=== PATIENT | female | born 1975 | race Hispanic/Latino ===

== ENCOUNTER 2017-11-28 21:19 | Emergency (ER) | payer BC ==
[2017-11-28 21:57] LABS: BASOPHILS % (AUTO) 0.7 % (0.0-5.0); EOSINOPHILS % (AUTO) 1.6 % (0.0-8.0); HEMATOCRIT 36.5 % (36-48); MEAN CORPUSCULAR HEMOGLOBIN 30.6 pg (27.0-33.0); MEAN CORPUSCULAR HGB CONC 35.1 g/dL (32.0-36.0); MEAN CORPUSCULAR VOLUME 87.3 fL (79-99); MONOCYTES % (AUTO) 7.9 % (3.0-13.0); NEUTROPHILS % (AUTO) 42.8 % (40.0-77.0); NUCLEATED RED BLOOD CELLS 0.1 % (0.0-0.19); PLATELET COUNT (AUTO) 313 K/uL (130-400); RED BLOOD CELL COUNT(AUTO) 4.18 MIL/uL (4.00-5.50); RED CELL DISTRIBUTION WIDTH 12.3 % (11.0-15.5); WHITE BLOOD COUNT (AUTO) 7.6 K/uL (4.8-10.8)
[2017-11-28 22:00] LABS: CREATININE 2.2 mg/dL (0.5-1.5)
[2017-11-28 22:02] LABS: INR 0.94 (0.85-1.15); PARTIAL THROMBOPLASTIN TIME 26.8 SEC (26.3-35.5); PROTHROMBIN TIME 9.9 SEC (9.6-11.6)
[2017-11-28 22:08] LABS: BILIRUBIN,URINE Negative (NEGATIVE); COLOR,URINE Yellow (YELLOW); GLUCOSE, URINE (UA) Negative (NEGATIVE); KETONES,URINE Negative (NEGATIVE); LEUKOCYTE ESTERASE ,URINE Negative (NEGATIVE); NITRATE,URINE Negative (NEGATIVE); OCCULT BLOOD,URINE Trace (NEGATIVE); PROTEIN,URINE >=1000 (NEGATIVE); UROBILINOGEN,URINE 0.2 mg/dL (0.2-1.0)
[2017-11-28 22:09] LABS: APPEARANCE,URINE CLEAR (CLEAR)
[2017-11-28 22:10] LABS: HCG,QUAL RESULT NEGATIVE (NEGATIVE)
[2017-11-28 22:14] LABS: BILIRUBIN,TOTAL 0.4 mg/dL (0.2-1.0); CREATINE KINASE MB 0.6 ng/mL (0.5-3.6); TOTAL PROTEIN, SERUM 7.1 g/dL (6.0-8.3)
[2017-11-28 22:21] LABS: BACTERIA,URINE Rare /HPF (None Seen); SQUAMOUS EPITHELIAL CELL,UR Few /HPF (0-2); WBC,URINE 0-1 /HPF (0-1)
[2017-11-28] MEDS ORDERED: ASPIRIN 325 MG TABLET ONE (22:22)
[2017-11-28] MEDS ORDERED: NITROGLYCERIN 1GM/1 INCH PACKET TD ONE (22:23)
[2017-11-28 23:00] LABS: ERYTHROCYTE SEDIMENTATION RATE 48 MM/HR (0-15)
[2017-11-29] MEDS ORDERED: TRAMADOL HCL 50 MG TABLET ONE (01:01)
== END 2017-11-29 01:24 | disposition home or self-care (01) ==
LOC: EDH 21:19
DX: L93.0 Discoid lupus erythematosus (principal); R07.9 Chest pain, unspecified; I10 Essential (primary) hypertension
CPT/HCPCS: 36415; 71045; 80053; 81001; 81025; 82550; 82553; 84484; 85025; 85610; 85651; 85730; 86141; 93005

== ENCOUNTER → 2017-12-29 | Outpatient (CLI) | payer BC | END | disposition home or self-care (01) | LOC: SHCH 07:47 | PROVIDERS: ATTEND Internal Medicine Cardiovascular Disease | DX: I11.9 Hypertensive heart disease without heart failure (principal); I20.9 Angina pectoris, unspecified | CPT/HCPCS: 93306 ==

== ENCOUNTER → 2018-09-09 | Outpatient (CLI) | payer OTHER | END | disposition home or self-care (01) | LOC: OIH 12:59 | PROVIDERS: ATTEND Internal Medicine Cardiovascular Disease | DX: Z13.6 Encounter for screening for cardiovascular disorders (principal) | CPT/HCPCS: 75571 ==

== ENCOUNTER 2019-09-13 21:03 | Emergency (ER) | payer BC, OTHER ==
[2019-09-13] MEDS ORDERED: ASPIRIN 81MG TAB.CHEW ONE (21:26)
[2019-09-13 21:28] LABS: BASOPHILS % (AUTO) 0.4 % (0.0-5.0); EOSINOPHILS % (AUTO) 0.8 % (0.0-8.0); HEMATOCRIT 37.2 % (36-48); LYMPHOCYTES % (AUTO) 29.5 % (21.0-51.0); MEAN CORPUSCULAR HGB CONC 34.4 g/dL (32.0-36.0); MEAN CORPUSCULAR VOLUME 87.3 fL (79-99); MONOCYTES % (AUTO) 5.4 % (3.0-13.0); NEUTROPHILS % (AUTO) 63.4 % (40.0-77.0); PLATELET COUNT (AUTO) 286 K/uL (130-400); RED BLOOD CELL COUNT(AUTO) 4.26 MIL/uL (4.00-5.50); RED CELL DISTRIBUTION WIDTH 12.3 % (11.0-15.5)
[2019-09-13 21:40] LABS: CREATININE 2.7 mg/dL (0.5-1.5); POTASSIUM 3.8 mmol/L (3.5-5.1)
[2019-09-13 21:44] LABS: ALBUMIN 2.9 g/dL (3.5-5.0); BILIRUBIN,TOTAL 0.3 mg/dL (0.2-1.0)
[2019-09-13 21:47] LABS: INR 0.87 (0.85-1.15); PROTHROMBIN TIME 9.2 SEC (9.6-11.6)
[2019-09-13] MEDS ORDERED: ONDANSETRON HCL 4 MG/2 ML VIAL ONE (22:03)
[2019-09-13] MEDS ORDERED: MORPHINE SULFATE 4 MG/1ML SYG ONE (22:04)
[2019-09-13 22:59] LABS: APPEARANCE,URINE Clear (CLEAR); BILIRUBIN,URINE Negative (NEGATIVE); COLOR,URINE Yellow (YELLOW); GLUCOSE, URINE (UA) Negative (NEGATIVE); KETONES,URINE Negative (NEGATIVE); LEUKOCYTE ESTERASE ,URINE Trace (NEGATIVE); NITRATE,URINE Negative (NEGATIVE); OCCULT BLOOD,URINE Trace (NEGATIVE); PH,URINE 5.5 (5.0-8.0); PROTEIN,URINE 300 mg/dL (NEGATIVE); UROBILINOGEN,URINE 0.2 mg/dL (0.2-1.0)
[2019-09-13 23:09] LABS: HCG,QUAL RESULT NEGATIVE (NEGATIVE)
[2019-09-13 23:16] LABS: AMPHET/METH SCREEN,URINE NEGATIVE (NEGATIVE); BARBITURATE SCREEN, URINE NEGATIVE (NEGATIVE); BENZODIAZEPINES SCREEN,URINE NEGATIVE (NEGATIVE); CANNABINOID SCREEN,URINE NEGATIVE (NEGATIVE); COCAINE SCREEN,URINE NEGATIVE (NEGATIVE); OPIATE SCREEN,URINE NEGATIVE (NEGATIVE); PHENCYCLIDINE SCREEN,URINE NEGATIVE (NEGATIVE)
[2019-09-13 23:26] LABS: BACTERIA,URINE Rare /HPF (None Seen); RBC,URINE 0-1 /HPF (0-1); SQUAMOUS EPITHELIAL CELL,UR Moderate /HPF (0-2); WBC,URINE 0-1 /HPF (0-1)
[2019-09-14] MEDS ORDERED: ACETAMINOPHEN 325 MG TAB ONE ×2 (01:34→01:35)
== END 2019-09-14 02:42 | disposition home or self-care (01) ==
LOC: EDH 21:03
DX: R07.89 Other chest pain (principal); I10 Essential (primary) hypertension; Z90.49 Acquired absence of other specified parts of digestive tract; Z98.890 Other specified postprocedural states
CPT/HCPCS: 36415; 71045; 80053; 80305; 81001; 81025; 82550; 83690; 84484 ×2; 85025; 85378; 85610; 85651; 85730; 86140; 93005 ×2; 96374; 96375; 99285; J2270; J2405

== ENCOUNTER 2021-04-11 11:08 | Inpatient (IN) | payer BC ==
[~2021-04-11] VITALS: Ht 157.5 cm; Wt 59.2 kg
[2021-04-11 11:14] VITALS: BP 136/98
[2021-04-11] MEDS ORDERED: SODI650T PO (13:26)
[2021-04-11] MEDS ORDERED: ESOM40CA54 PO (13:27)
[2021-04-11] MEDS ORDERED: ALPR-409 PO (13:28)
[2021-04-11] MEDS ORDERED: LOSA50TA64 PO (13:29)
[2021-04-11 13:31] LABS: HEMATOCRIT 32.6 % (36-48); MEAN CORPUSCULAR HEMOGLOBIN 29.9 pg (27.0-33.0); MEAN CORPUSCULAR VOLUME 85.6 fL (79-99); RED BLOOD CELL COUNT(AUTO) 3.81 MIL/uL (4.00-5.50); RED CELL DISTRIBUTION WIDTH 12.5 % (11.0-15.5); WHITE BLOOD COUNT (AUTO) 6.2 K/uL (4.8-10.8)
[2021-04-11 13:36] LABS: APPEARANCE,URINE Clear (CLEAR); BILIRUBIN,URINE Negative (NEGATIVE); COLOR,URINE Yellow (YELLOW); GLUCOSE, URINE (UA) Negative (NEGATIVE); KETONES,URINE Trace mg/dL (NEGATIVE); LEUKOCYTE ESTERASE ,URINE Negative (NEGATIVE); NITRATE,URINE Negative (NEGATIVE); OCCULT BLOOD,URINE Negative (NEGATIVE); PROTEIN,URINE 300 mg/dL (NEGATIVE); UROBILINOGEN,URINE 0.2 mg/dL (0.2-1.0)
[2021-04-11 13:37] LABS: CREATININE 5.1 mg/dL (0.5-1.5); POTASSIUM 4.1 mmol/L (3.5-5.1)
[2021-04-11] MEDS ORDERED: METO-408 PO (13:37)
[2021-04-11 13:39] LABS: INR 1.01 (0.85-1.15)
[2021-04-11] MEDS ORDERED: LOSA25TA41 PO (13:39)
[2021-04-11 13:40] LABS: PARTIAL THROMBOPLASTIN TIME 26.8 SEC (26.3-35.5)
[2021-04-11 13:44] LABS: BACTERIA,URINE Few /HPF (None Seen); RBC,URINE 0-1 /HPF (0-1)
[2021-04-11 13:45] LABS: WBC,URINE 0-1 /HPF (0-1)
[2021-04-11 13:50] LABS: ALBUMIN 3.7 g/dL (3.5-5.0); BILIRUBIN,TOTAL 0.7 mg/dL (0.2-1.0); THYROID STIMULATING HORMONE 1.29 uIU/mL (0.36-3.74); TOTAL PROTEIN, SERUM 7.4 g/dL (6.0-8.3)
[2021-04-11 14:09] VITALS: BP 125/92
[2021-04-11 15:49] VITALS: BP 130/90
[2021-04-11] MEDS ORDERED: LIDOCAINE HCL 2% VISCOUS 15 ML UDCUP PO ONE (16:00)
[2021-04-11] MEDS ORDERED: MAG/ALUM/SIMETH 30 ML UDCUP PO ONE (16:00)
[2021-04-11] MEDS ORDERED: MAG/ALUM/SIMETH 30 ML UDCUP ONE (17:07)
[2021-04-11] MEDS ORDERED: LIDOCAINE HCL 2% VISCOUS 15 ML UDCUP ONE (17:07)
[2021-04-11 18:53] VITALS: BP 136/97
[2021-04-11] MEDS: SODIUM BICARBONATE 650 MG TAB PO SCH (21:00)
[2021-04-11 21:38] VITALS: BP 128/90
[2021-04-12] VITALS (23 sets, daily range): BP systolic 117–143; BP diastolic 81–100
[2021-04-12 06:28] LABS: ALBUMIN 3.4 g/dL (3.5-5.0); BILIRUBIN,TOTAL 0.6 mg/dL (0.2-1.0); POTASSIUM 3.9 mmol/L (3.5-5.1); TOTAL PROTEIN, SERUM 6.9 g/dL (6.0-8.3)
[2021-04-12] MEDS: ALPRAZOLAM 0.25 MG TABLET PO PRN (08:26)
[2021-04-12] MEDS: ONDANSETRON 4MG INJ IVP PRN ×2 (08:26→16:03)
[2021-04-12] MEDS: FAMOTIDINE 20MG VIAL IV SCH (08:29)
[2021-04-12] MEDS: LOSARTAN 25 MG TABLET PO SCH (08:29)
[2021-04-12] MEDS: SODIUM BICARBONATE 650 MG TAB PO SCH ×2 (09:00→21:00)
[2021-04-12] MEDS: METOPROLOL SUCCINATE 50 MG TAB.SR.24H PO SCH ×3 (09:00→16:39)
[2021-04-12] MEDS ORDERED: HYDROMORPHONE 0.5 MG SYG (0.5MG/0.5ML) IVP PRN (09:30)
[2021-04-12] MEDS ORDERED: LIDOCAINE HCL 1% MDV 50ML VIAL ONE (09:35)
[2021-04-12] MEDS ORDERED: HEPARIN 1,000 UNIT VIAL ONE (09:35)
[2021-04-12] MEDS ORDERED: MIDAZOLAM HCL 1 MG/ML 2ML VIAL ONE (10:16)
[2021-04-12 11:26] LABS: HEMATOCRIT 31.2 % (36-48)
[2021-04-12 11:39] LABS: ALBUMIN 3.5 g/dL (3.5-5.0); CREATININE 4.7 mg/dL (0.5-1.5)
[2021-04-12 12:04] LABS: % IRON SATURATION 23.2 % (22-44)
[2021-04-12] MEDS: HEPARIN 5,000 UNIT VIAL SQ PRN (15:25)
[2021-04-13] VITALS (7 sets, daily range): BP systolic 105–126; BP diastolic 72–93
[2021-04-13 05:17] LABS: CREATININE 4.9 mg/dL (0.5-1.5)
[2021-04-13 08:14] LABS: HEPATITIS Bs ANTIGEN SCREEN P Negative (Negative)
[2021-04-13] MEDS: FAMOTIDINE 20MG VIAL IV SCH (09:14)
[2021-04-13] MEDS: LOSARTAN 25 MG TABLET PO SCH (09:16)
[2021-04-13] MEDS: METOPROLOL SUCCINATE 50 MG TAB.SR.24H PO SCH (09:16)
[2021-04-13] MEDS: SODIUM BICARBONATE 650 MG TAB PO SCH ×2 (09:16→21:38)
[2021-04-13] MEDS: ONDANSETRON 4MG INJ IVP PRN (09:59)
[2021-04-13] MEDS ORDERED: KCL 20 MEQ ERTAB PO ONE (20:00)
[2021-04-14] VITALS (18 sets, daily range): BP systolic 106–131; BP diastolic 76–92
[2021-04-14 05:36] LABS: ALBUMIN 3.3 g/dL (3.5-5.0); BILIRUBIN,TOTAL 0.7 mg/dL (0.2-1.0); CREATININE 6.1 mg/dL (0.5-1.5); POTASSIUM 3.5 mmol/L (3.5-5.1); TOTAL PROTEIN, SERUM 6.8 g/dL (6.0-8.3)
[2021-04-14] MEDS: ONDANSETRON 4MG INJ IVP PRN (08:02)
[2021-04-14] MEDS: METOPROLOL SUCCINATE 50 MG TAB.SR.24H PO SCH (09:52)
[2021-04-14] MEDS: SODIUM BICARBONATE 650 MG TAB PO SCH ×2 (09:52→20:52)
[2021-04-14] MEDS: FAMOTIDINE 20MG VIAL IV SCH (09:52)
[2021-04-14] MEDS: LOSARTAN 25 MG TABLET PO SCH (09:52)
[2021-04-14] MEDS ORDERED: KETOROLAC 15MG/ML VIAL (15MG/ML) IV PRN (10:30)
[2021-04-14] MEDS: ACETAMINOPHEN 325 MG TAB PO PRN ×2 (10:39→19:25)
[2021-04-14] MEDS: ALPRAZOLAM 0.25 MG TABLET PO PRN ×3 (13:01→19:21)
[2021-04-15] VITALS (18 sets, daily range): BP systolic 99–142; BP diastolic 64–100
[2021-04-15 05:38] LABS: HEMATOCRIT 29.5 % (36-48); MEAN CORPUSCULAR HEMOGLOBIN 29.3 pg (27.0-33.0); MEAN CORPUSCULAR HGB CONC 34.2 g/dL (32.0-36.0); MEAN CORPUSCULAR VOLUME 85.5 fL (79-99); RED BLOOD CELL COUNT(AUTO) 3.45 MIL/uL (4.00-5.50); RED CELL DISTRIBUTION WIDTH 12.4 % (11.0-15.5); WHITE BLOOD COUNT (AUTO) 5.1 K/uL (4.8-10.8)
[2021-04-15 06:12] LABS: CREATININE 4.1 mg/dL (0.5-1.5); POTASSIUM 3.5 mmol/L (3.5-5.1)
[2021-04-15] MEDS: METOCLOPRAMIDE 10 MG/2 ML VIAL IVP PRN ×2 (08:16→13:16)
[2021-04-15] MEDS: FAMOTIDINE 20MG VIAL IV SCH (08:16)
[2021-04-15] MEDS: LOSARTAN 25 MG TABLET PO SCH ×2 (09:00→20:11)
[2021-04-15] MEDS: SODIUM BICARBONATE 650 MG TAB PO SCH ×2 (09:00→21:00)
[2021-04-15] MEDS: METOPROLOL SUCCINATE 50 MG TAB.SR.24H PO SCH ×2 (09:00→20:11)
[2021-04-15] MEDS ORDERED: MEPERIDINE-PF 50 MG/ML SYG ONE (11:06)
[2021-04-15] MEDS ORDERED: MIDAZOLAM HCL 1 MG/ML 2ML VIAL ONE (11:07)
[2021-04-15] MEDS ORDERED: FENTANYL CITRATE PF 50 MCG/1 ML 2ML VIAL ONE (11:07)
[2021-04-15] MEDS ORDERED: LACTULOSE 20 GM/30 ML UDCUP PO SCH (13:00)
[2021-04-15] MEDS: MAGNESIUM CITRATE 296 ML SOLUTION PO SCH (13:13)
[2021-04-15] MEDS ORDERED: PEG 3350/NA SULF,BICARB,CL/KCL 4000 ML SOLN PO SCH (15:00)
[2021-04-15] MEDS ORDERED: BISACODYL 5 MG TABLET.DR PO SCH ×2 (17:00→21:00)
[2021-04-16] VITALS (18 sets, daily range): BP systolic 121–181; BP diastolic 84–110
[2021-04-16 05:38] LABS: HEMATOCRIT 30.6 % (36-48); MEAN CORPUSCULAR HEMOGLOBIN 29.5 pg (27.0-33.0); MEAN CORPUSCULAR HGB CONC 34.6 g/dL (32.0-36.0); MEAN CORPUSCULAR VOLUME 85.2 fL (79-99); RED BLOOD CELL COUNT(AUTO) 3.59 MIL/uL (4.00-5.50); RED CELL DISTRIBUTION WIDTH 12.3 % (11.0-15.5); WHITE BLOOD COUNT (AUTO) 5.9 K/uL (4.8-10.8)
[2021-04-16 05:47] LABS: CREATININE 4.7 mg/dL (0.5-1.5); POTASSIUM 3.1 mmol/L (3.5-5.1)
[2021-04-16] MEDS: SODIUM BICARBONATE 650 MG TAB PO SCH ×2 (09:12→21:00)
[2021-04-16] MEDS: PANTOPRAZOLE 40 MG TAB DR PO SCH (09:12)
[2021-04-16] MEDS: LOSARTAN 25 MG TABLET PO SCH (09:12)
[2021-04-16] MEDS: FAMOTIDINE 20MG VIAL IV SCH (09:12)
[2021-04-16] MEDS: METOPROLOL SUCCINATE 50 MG TAB.SR.24H PO SCH ×2 (09:13→13:10)
[2021-04-16] MEDS: MAGNESIUM CITRATE 296 ML SOLUTION PO SCH (13:00)
[2021-04-16] MEDS: ALPRAZOLAM 0.25 MG TABLET PO PRN ×2 (18:09→21:27)
[2021-04-16] MEDS ORDERED: ASPIRIN 325MG EC TAB PO STA (20:45)
[2021-04-16] MEDS ORDERED: ASPIRIN 81MG CHEW TAB ONE (20:49)
[2021-04-16] MEDS ORDERED: NITROGLYCERIN 0.4 MG SL TAB SL ONE (20:50)
[2021-04-16] MEDS ORDERED: CALCIUM CARB 500MG CHEW TAB PO STA (20:55)
[2021-04-16] MEDS ORDERED: MORPHINE 2 MG SYG IVP PRN (21:00)
[2021-04-16 21:07] LABS: HEMATOCRIT 31.7 % (36-48); MEAN CORPUSCULAR HEMOGLOBIN 29.5 pg (27.0-33.0); MEAN CORPUSCULAR HGB CONC 34.4 g/dL (32.0-36.0); MEAN CORPUSCULAR VOLUME 85.9 fL (79-99); PLATELET COUNT (AUTO) 152 K/uL (130-400); RED BLOOD CELL COUNT(AUTO) 3.69 MIL/uL (4.00-5.50); RED CELL DISTRIBUTION WIDTH 12.2 % (11.0-15.5); WHITE BLOOD COUNT (AUTO) 7.9 K/uL (4.8-10.8)
[2021-04-16] MEDS: NITROGLYCERIN 0.4 MG SL TAB SL PRN ×2 (21:08→21:15)
[2021-04-16 21:17] LABS: CREATININE 2.6 mg/dL (0.5-1.5); POTASSIUM 3.1 mmol/L (3.5-5.1)
[2021-04-16 21:22] LABS: ALBUMIN 3.2 g/dL (3.5-5.0); BILIRUBIN,TOTAL 0.8 mg/dL (0.2-1.0); TOTAL PROTEIN, SERUM 6.6 g/dL (6.0-8.3)
[2021-04-16] MEDS: HEPARIN 5,000 UNIT VIAL SQ PRN (21:22)
[2021-04-16 21:32] LABS: BAND NEUTROPHILS % (MANUAL) 6 % (0-2); EOSINOPHILS % (MANUAL) 2 % (1-6); LYMPHOCYTES % (MANUAL) 17 % (22-44); MAN.DIFF COMMENT-IMPRESSION MANUAL DIFFERENTIAL; MONOCYTES % (MANUAL) 3 % (2-9); REACTIVE LYMPHOCYTES 5 % (0-0); SEGMENTED NEUTROPHILS % 67 % (40-70)
[2021-04-16 21:34] LABS: PLATELET MORPHOLOGY COMMENT LARGE PLTS PRESENT
[2021-04-16] MEDS ORDERED: CALCIUM CARB 500MG CHEW TAB PO SCH (22:00)
[2021-04-17] VITALS (7 sets, daily range): BP systolic 116–155; BP diastolic 80–100
[2021-04-17 05:53] LABS: HEMATOCRIT 29.2 % (36-48); MEAN CORPUSCULAR HEMOGLOBIN 29.5 pg (27.0-33.0); MEAN CORPUSCULAR HGB CONC 33.6 g/dL (32.0-36.0); RED BLOOD CELL COUNT(AUTO) 3.32 MIL/uL (4.00-5.50); RED CELL DISTRIBUTION WIDTH 12.3 % (11.0-15.5); WHITE BLOOD COUNT (AUTO) 5.4 K/uL (4.8-10.8)
[2021-04-17 06:19] LABS: CREATININE 3.4 mg/dL (0.5-1.5); POTASSIUM 3.3 mmol/L (3.5-5.1)
[2021-04-17] MEDS: FAMOTIDINE 20MG VIAL IV SCH (09:00)
[2021-04-17] MEDS: METOPROLOL SUCCINATE 50 MG TAB.SR.24H PO SCH ×2 (09:00→09:26)
[2021-04-17] MEDS: LOSARTAN 25 MG TABLET PO SCH ×2 (09:00→09:25)
[2021-04-17] MEDS: SODIUM BICARBONATE 650 MG TAB PO SCH ×2 (09:25→21:03)
[2021-04-17] MEDS: PANTOPRAZOLE 40 MG TAB DR PO SCH (09:26)
[2021-04-17] MEDS ORDERED: HYDROXYCHLOROQUINE SULFATE 200 MG TAB PO SCH ×2 (10:45→11:00)
[2021-04-17] MEDS ORDERED: SOLU-MEDROL 40MG VIAL IVP ONE (11:00)
[2021-04-17] MEDS ORDERED: HYDROXYCHLOROQUINE SULFATE 200 MG TAB ONE (13:00)
[2021-04-17] MEDS: MAGNESIUM CITRATE 296 ML SOLUTION PO SCH (13:00)
[2021-04-17] MEDS: METOCLOPRAMIDE 10 MG TABLET PO SCH ×3 (13:01→21:04)
[2021-04-17] MEDS: SOLU-MEDROL 40MG VIAL IVP SCH ×2 (13:01→21:03)
[2021-04-17] MEDS: ALPRAZOLAM 0.25 MG TABLET PO PRN (14:03)
[2021-04-17] MEDS ORDERED: HYDRALAZINE 20MG/ML VIAL IV PRN (18:30)
[2021-04-17] MEDS ORDERED: HYDRALAZINE 20MG/ML VIAL ONE (18:43)
[2021-04-18] VITALS (17 sets, daily range): BP systolic 134–176; BP diastolic 89–107
[2021-04-18 05:13] LABS: HEMATOCRIT 30.6 % (36-48); MEAN CORPUSCULAR HEMOGLOBIN 29.7 pg (27.0-33.0); MEAN CORPUSCULAR VOLUME 87.4 fL (79-99); RED BLOOD CELL COUNT(AUTO) 3.5 MIL/uL (4.00-5.50); RED CELL DISTRIBUTION WIDTH 12.1 % (11.0-15.5)
[2021-04-18] MEDS: METOCLOPRAMIDE 10 MG TABLET PO SCH ×4 (07:30→21:26)
[2021-04-18] MEDS ORDERED: REGADENOSON 0.4 MG/5 ML PF SYG IVP SCH (08:00)
[2021-04-18] MEDS: PANTOPRAZOLE 40 MG TAB DR PO SCH (11:07)
[2021-04-18] MEDS: SODIUM BICARBONATE 650 MG TAB PO SCH ×2 (11:07→21:25)
[2021-04-18] MEDS: SOLU-MEDROL 40MG VIAL IVP SCH ×2 (11:07→21:26)
[2021-04-18] MEDS: LOSARTAN 25 MG TABLET PO SCH ×2 (11:08→11:16)
[2021-04-18] MEDS: FAMOTIDINE 20MG VIAL IV SCH (11:08)
[2021-04-18] MEDS: METOPROLOL SUCCINATE 50 MG TAB.SR.24H PO SCH ×2 (11:09→11:16)
[2021-04-18] MEDS ORDERED: MORPHINE 2 MG SYG IM ONE (12:00)
[2021-04-18] MEDS: HYDROXYCHLOROQUINE SULFATE 200 MG TAB PO SCH (12:20)
[2021-04-18] MEDS: MAGNESIUM CITRATE 296 ML SOLUTION PO SCH (13:00)
[2021-04-18] MEDS ORDERED: DEXTROSE 5%-WATER 1,000 ML IV ONE (13:27)
[2021-04-18] MEDS: DEXTROSE 5%-WATER 1,000 ML IV SCH ×2 (13:30→13:40)
[2021-04-18] MEDS ORDERED: KETOROLAC 30MG VIAL (30MG/ML) IM ONE (14:00)
[2021-04-18] MEDS ORDERED: PRED20TA3 PO (15:08)
[2021-04-18] MEDS ORDERED: IBUP-2784 PO (15:08)
[2021-04-18] MEDS ORDERED: METO-296 PO (17:02)
[2021-04-18] MEDS ORDERED: METOPROLOL TARTRATE 1 MG/ML 5ML VIAL IV ONE (17:30)
[2021-04-18] MEDS ORDERED: METO-391 PO (18:42)
[2021-04-18] MEDS ORDERED: METOPROLOL TARTRATE 25 MG TAB PO ONE (21:00)
[2021-04-19] VITALS: BP 130/87
[2021-04-19 04:00] VITALS: BP 126/90
[2021-04-19 05:04] LABS: CREATININE 3.5 mg/dL (0.5-1.5); MAGNESIUM 1.7 mg/dL (1.80-2.40); POTASSIUM 3.6 mmol/L (3.5-5.1); THYROID STIMULATING HORMONE 0.96 uIU/mL (0.36-3.74)
[2021-04-19 07:45] VITALS: BP 125/91
[2021-04-19] MEDS: METOPROLOL SUCCINATE 50 MG TAB.SR.24H PO SCH (08:00)
[2021-04-19] MEDS: LOSARTAN 25 MG TABLET PO SCH ×3 (08:00→09:23)
[2021-04-19] MEDS: MAGNESIUM CITRATE 296 ML SOLUTION PO SCH (08:10)
[2021-04-19] MEDS ORDERED: MAGNESIUM OXIDE 400 MG TABLET PO SCH (08:30)
[2021-04-19] MEDS: PANTOPRAZOLE 40 MG TAB DR PO SCH ×2 (09:00→09:23)
[2021-04-19] MEDS: HYDROXYCHLOROQUINE SULFATE 200 MG TAB PO SCH ×2 (09:00→09:24)
[2021-04-19] MEDS: SODIUM BICARBONATE 650 MG TAB PO SCH ×2 (09:00→09:23)
[2021-04-19] MEDS ORDERED: METOPROLOL SUCCINATE 50 MG TAB.SR.24H PO SCH (09:00)
[2021-04-19] MEDS: FAMOTIDINE 20MG VIAL IV SCH (09:24)
[2021-04-19] MEDS: SOLU-MEDROL 40MG VIAL IVP SCH (09:24)
[2021-04-19] MEDS: METOCLOPRAMIDE 10 MG TABLET PO SCH (10:30)
== END 2021-04-19 12:25 | disposition home or self-care (01) | DRG 545 ==
LOC: EDH 11:08 → OBSVTOIN 11:09 → EDHIP 11:09 → 3CH 21:42
PROVIDERS: ADMIT Internal Medicine Critical Care Medicine; ATTEND Internal Medicine Critical Care Medicine
PROC: 02H633Z Insertion of Infusion Device into Right Atrium, Percutaneous Approach (ICD-10-PCS; principal; 2021-04-12)
PROC: B5181ZA Fluoroscopy of Superior Vena Cava using Low Osmolar Contrast, Guidance (ICD-10-PCS; 2021-04-12)
PROC: B548ZZA Ultrasonography of Superior Vena Cava, Guidance (ICD-10-PCS; 2021-04-12)
PROC: 5A1D70Z Performance of Urinary Filtration, Intermittent, Less than 6 Hours Per Day (ICD-10-PCS; 2021-04-12)
PROC: 0JH63XZ Insertion of Tunneled Vascular Access Device into Chest Subcutaneous Tissue and Fascia, Percutaneous Approach (ICD-10-PCS; 2021-04-12)
PROC: 5A1D70Z Performance of Urinary Filtration, Intermittent, Less than 6 Hours Per Day (ICD-10-PCS; 2021-04-14)
PROC: 0DB98ZX Excision of Duodenum, Via Natural or Artificial Opening Endoscopic, Diagnostic (ICD-10-PCS; 2021-04-15)
PROC: 0DB68ZX Excision of Stomach, Via Natural or Artificial Opening Endoscopic, Diagnostic (ICD-10-PCS; 2021-04-15)
PROC: 0DB58ZX Excision of Esophagus, Via Natural or Artificial Opening Endoscopic, Diagnostic (ICD-10-PCS; 2021-04-15)
PROC: 5A1D70Z Performance of Urinary Filtration, Intermittent, Less than 6 Hours Per Day (ICD-10-PCS; 2021-04-16)
PROC: 5A1D70Z Performance of Urinary Filtration, Intermittent, Less than 6 Hours Per Day (ICD-10-PCS; 2021-04-18)
DX: M32.14 Glomerular disease in systemic lupus erythematosus (principal); N18.6 End stage renal disease; I12.0 Hypertensive chronic kidney disease with stage 5 chronic kidney disease or end stage renal disease; E87.1 Hypo-osmolality and hyponatremia; F41.9 Anxiety disorder, unspecified; K21.00 Gastro-esophageal reflux disease with esophagitis, without bleeding; D50.9 Iron deficiency anemia, unspecified; E11.22 Type 2 diabetes mellitus with diabetic chronic kidney disease; K57.90 Diverticulosis of intestine, part unspecified, without perforation or abscess without bleeding; K29.00 Acute gastritis without bleeding; B96.81 Helicobacter pylori [H. pylori] as the cause of diseases classified elsewhere; D63.8 Anemia in other chronic diseases classified elsewhere; K29.80 Duodenitis without bleeding; Z20.822 Contact with and (suspected) exposure to COVID-19; Z98.891 History of uterine scar from previous surgery; Z91.19 Patient's noncompliance with other medical treatment and regimen; Z90.49 Acquired absence of other specified parts of digestive tract; Z76.82 Awaiting organ transplant status; Z80.0 Family history of malignant neoplasm of digestive organs; Z83.3 Family history of diabetes mellitus; Z82.49 Family history of ischemic heart disease and other diseases of the circulatory system
CPT/HCPCS: 36415; 36558; 43239; 71045; 74176; 76856; 77001; 78452; 80048; 80053; 80061; 81001; 82040; 82378; 82565; 82728; 82948; 83036; 83540; 83550; 83735; 83880; 84100; 84443; 84484; 84520; 85014; 85018; 85025; 85027; 85610; 85730; 86304; 86677; 86701; 86704; 86706; 87340; 87390; 87635; 90935; 93005; 93017; 93306; 93356; 96374; 97039; 99152; 99156; 99157; A4606; A9500; C1750; G0378; J0360; J1170; J1644; J1885; J2175; J2250; J2405; J2765; J2785; J2920; J3010; J3490; J7030; J7070

== ENCOUNTER 2022-09-10 21:40 | Emergency (ER) | payer BC ==
[~2022-09-10] VITALS: Ht 157.5 cm; Wt 56.7 kg
[~2022-09-10 21:40] MED LIST: ALPR-409 PO; ESOM40CA54 PO; IBUP-2784 PO; LOSA25TA41 PO; METO-296 PO; METO-391 PO; PRED20TA3 PO; SODI650T PO
[2022-09-10 22:55] LABS: BASOPHILS % (AUTO) 0.2 % (0.0-5.0); EOSINOPHILS % (AUTO) 0.3 % (0.0-8.0); HEMATOCRIT 37.8 % (36-48); LYMPHOCYTES % (AUTO) 12.1 % (21.0-51.0); MEAN CORPUSCULAR HEMOGLOBIN 29.1 pg (27.0-33.0); MEAN CORPUSCULAR HGB CONC 34.9 g/dL (32.0-36.0); MEAN CORPUSCULAR VOLUME 83.4 fL (79-99); MONOCYTES % (AUTO) 7.8 % (3.0-13.0); NEUTROPHILS % (AUTO) 79.3 % (40.0-77.0); PLATELET COUNT (AUTO) 236 K/uL (130-400); RED BLOOD CELL COUNT(AUTO) 4.53 MIL/uL (4.00-5.50); RED CELL DISTRIBUTION WIDTH 11.9 % (11.0-15.5); WHITE BLOOD COUNT (AUTO) 12.7 K/uL (4.8-10.8)
[2022-09-10 23:19] LABS: POTASSIUM 3.8 mmol/L (3.5-5.1)
[2022-09-10 23:21] LABS: TOTAL PROTEIN, SERUM 8.1 g/dL (6.0-8.3)
[2022-09-11] MEDS ORDERED: ACETAMINOPHEN 500 MG TABLET PO ONE ×2
[2022-09-11 00:09] LABS: APPEARANCE,URINE CLEAR (CLEAR); BILIRUBIN,URINE NEGATIVE (NEGATIVE); COLOR,URINE LIGHT-YELLOW (YELLOW); GLUCOSE, URINE (UA) NEGATIVE (NEGATIVE); KETONES,URINE NEGATIVE (NEGATIVE); LEUKOCYTE ESTERASE ,URINE NEGATIVE Leu/uL (NEGATIVE); NITRATE,URINE NEGATIVE (NEGATIVE); OCCULT BLOOD,URINE NEGATIVE (NEGATIVE); PH,URINE 5.5 (5.0-8.0); PROTEIN,URINE NEGATIVE (NEGATIVE); UROBILINOGEN,URINE 0.2 mg/dL (0.2-1.0)
[2022-09-11 00:13] LABS: RBC,URINE 0-1 /HPF (0-1); SQUAMOUS EPITHELIAL CELL,UR RARE /HPF (0-2)
[2022-09-11 02:18] VITALS: BP 101/63
== END 2022-09-11 03:37 | disposition home or self-care (01) ==
LOC: EDH 21:40
DX: B34.9 Viral infection, unspecified (principal); J06.9 Acute upper respiratory infection, unspecified; Z20.822 Contact with and (suspected) exposure to COVID-19
CPT/HCPCS: 99283; 71045; 87635; 80053; 85025; 87040 ×2; 87804 ×2; 83605; 81001; 36415; C9803

== ENCOUNTER 2024-10-08 08:27 | Emergency (ER) | payer BC ==
[~2024-10-08] VITALS: Ht 157.5 cm; Wt 58.1 kg
[~2024-10-08 08:27] MED LIST changes: -ESOM40CA54 PO; +ESOM40CA66 PO
--- NOTE | 2024-10-08 08:55 | ERN ---
General Chief Complaint: Flank Pain Stated Complaint: RT FLANK PAIN, LOWER ABD PAIN Time Seen by MD: 08:36 History of Present Illness Initial Comments 49-year-old female, history of lupus, history of renal transplant in the right side in [place] in 2020, on tacrolimus and mycophenolate, presents for right lower abdominal pain near the kidney area. She has also had some loose stools and some nausea. No fevers. She was started on ciprofloxacin, she has been taking it for about a week now, his symptoms persist. No fevers. No hematuria or dysuria. Allergies: Coded Allergies: No Known Drug Allergies (Unverified Allergy, Unknown, 09/14/19) Home Meds Active Scripts Metoprolol Succinate (Metoprolol Succinate) 50 Mg Tab.er.24h, 50 MG PO DAILY for 30 Days, #30 TAB Prov:MELISSA MATHEW 04/18/21 Metoclopramide HCl (Reglan) 10 Mg Tablet, 5 MG PO ACHS, #120 TAB Prov:MELISSA MATHEW 04/18/21 Prednisone (Prednisone) 20 Mg Tablet, 20 MG PO BID for 5 Days, #10 TAB Prov:MELISSA MATHEW 04/18/21 Ibuprofen (Ibuprofen 200 mg Tablet) 200 Mg Tablet, 600 MG PO BID for 5 Days, #10 TAB Prov:MELISSA MATHEW 04/18/21 Reported Medications Losartan Potassium (Losartan Potassium) 25 Mg Tablet, 25 MG PO DAILY, TAB 04/11/21 Alprazolam (Alprazolam) 0.25 Mg Tab.rapdis, 0.25 MG PO AD PRN for ANXIETY, TAB 04/11/21 Esomeprazole Magnesium (Esomeprazole Magnesium) 40 Mg Capsule.dr, 40 MG PO DAILY, CAP 04/11/21 Sodium Bicarbonate (Sodium Bicarbonate) 650 Mg Tablet, 650 MG PO BID, TAB 04/11/21 Past Medical History Past Medical History: Renal Disese, Other Medical History Other: LUPUS Past Surgical History: Other, Surgical History Other: RT BKIDNEY TRANSPLANT Social History Social History: Negative ROS Dictation CONSTITUTIONAL: No chills, no fever, no weakness, no diaphoresis, no malaise. HEAD/FACE: No signs of trauma. EENT: No eye pain, no blurred vision, no tearing, no double vision, no ear pain, no ear discharge, no nose pain, no nasal congestion, no throat pain, no throat swelling, no mouth pain. RESPIRATORY: No cough, no orthopnea, no SOB, no stridor, no wheezing. CARDIOVASCULAR: No chest pain, no edema, no palpitations, no syncope. GASTROINTESTINAL/ABDOMINAL: Right lower abdominal discomfort, some nausea, a few loose stools GENITOURINARY: No abnormal discharge, no dysuria, no frequent urination, no hematuria. No complaints of pain in the genitals. MUSCULOSKELETAL: No back pain, no gout, no joint pain, no joint swelling, no muscle pain, no muscle stiffness, no neck pain. INTEGUMENTARY: No change in color, no change in hair/nails, no dryness, no lesion, no lumps, no rash. NEUROLOGICAL/PSYCH: No anxiety, not depressed, no emotional problem, no headache, no numbness, no pre-existing deficit, no history of seizures, no tremors, no weakness. HEMATOLOGIC/LYMPHATIC: Not anemic, no history of blood clots, no apparent bleeding, no bruising, glands not swollen. All Systems Negative, Except as Noted. Physical Exam Physical Exam Dictation VITAL SIGNS: Reviewed. GENERAL APPEARANCE: Alert, oriented x3, no acute distress. HEAD AND FACE: Non-traumatic. EYES: PERRL, pink conjunctivas, eyelid no trauma, anterior chamber clear. EARS: Pinnas intact and no signs of trauma or erythema. Ear canals clear and no discharge. TMs no erythema. NOSE: No discharge, no bleeding. OROPHARYNX: Mouth normal, teeth no caries, tongue pink. Pharynx clear, no erythema. Tonsils no exudates, no abscesses noted. Mucous membrane moist. NECK: Supple, non-tender, no thyromegaly, no masses, no JVD, no bruits. BREAST: Deferred. CHEST: No tenderness, no crepitus, no paradoxical movement, no retractions. LUNGS: Clear, well-ventilated, symmetric, no rales, no wheezing, no rhonchi, no stridor, good breath sounds bilaterally. HEART: Regular rate, regular rhythm, no murmur, no gallops. VASCULAR: No peripheral edema. ABDOMEN: Soft, positive bowel sounds, nondistended, no guarding, nontender, no rebound, no masses no hepatomegaly, no splenomegaly, no Bal's sign, no hernias. RECTAL: Deferred. GENITAL: Deferred. NEUROLOGICAL: Normal speech, gross motor function intact, gross sensory function intact. MUSCULOSKELETAL: Neck nontender, full range of motion, back nontender, full range of motion. EXTREMITIES: Nontender, full range of motion. SKIN: Color pink, dry, no turgor, no rash, no lacerations, no abrasions, no contusions. LYMPHATICS: Deferred. Results Laboratory and Microbiology Lab and Micro Result Laboratory Tests Test 10/08/24 09:20 White Blood Count 5.8 K/uL (4.8-10.8) Red Blood Count 5.01 MIL/uL (4.00-5.50) Hemoglobin 14.7 g/dL (12.0-16.0) Hematocrit 42.7 % (36-48) Mean Corpuscular Volume 85.2 fL (79-99) Mean Corpuscular Hemoglobin 29.3 pg (27.0-33.0) Mean Corpuscular Hemoglobin Concent 34.4 g/dL (32.0-36.0) Red Cell Distribution Width 12.3 % (11.0-15.5) Platelet Count 224 K/uL (130-400) Mean Platelet Volume 9.8 fL (7.5-10.5) Immature Granulocyte % (Auto) 0.2 % (0-1) Neutrophils (%) (Auto) 63.8 % (40.0-77.0) Lymphocytes (%) (Auto) 27.7 % (21.0-51.0) Monocytes (%) (Auto) 7.1 % (3.0-13.0) Eosinophils (%) (Auto) 1.0 % (0.0-8.0) Basophils (%) (Auto) 0.2 % (0.0-5.0) Neutrophils # (Auto) 3.7 K/uL (1.8-7.7) Lymphocytes # (Auto) 1.6 K/uL (1.0-4.8) Monocytes # (Auto) 0.4 K/uL (0.1-1.0) Eosinophils # (Auto) 0.06 K/uL (0.00-0.70) Basophils # (Auto) 0.01 K/uL (0.00-0.20) Absolute Immature Granulocyte (auto 0.01 K/uL (0-1) Nucleated Red Blood Cells 0.0 % (0.0-0.19) Erythrocyte Sedimentation Rate 19 MM/HR (0-30) Urine Color LIGHT-YELLOW (YELLOW) Urine Appearance CLEAR (CLEAR) Urine pH 6.0 (5.0-8.0) Urine Specific [place] 1.008 (1.001-1.031) Urine Protein NEGATIVE mg/dL (NEGATIVE) Urine Glucose (UA) NEGATIVE mg/dL (NEGATIVE) Urine Ketones NEGATIVE mg/dL (NEGATIVE) Urine Occult Blood NEGATIVE (NEGATIVE) Urine Nitrate NEGATIVE (NEGATIVE) Urine Bilirubin NEGATIVE mg/dL (NEGATIVE) Urine Urobilinogen 0.2 mg/dL (0.2-1.0) Urine Leukocyte Esterase NEGATIVE Екатерина/uL Sodium Level 136 mmol/L (136-145) Potassium Level 3.8 mmol/L (3.5-5.1) Chloride Level 100 mmol/L (101-111) L Carbon Dioxide Level 30 mmol/L (21-32) Blood Urea Nitrogen 10 mg/dL (7-18) Creatinine 0.9 mg/dL (0.5-1.0) Glomerular Filtration Rate Calc 78 mL/min (>90) Random Glucose 84 mg/dL (70-105) Total Calcium 9.5 mg/dL (8.5-10.1) C-Reactive Protein, Quantitative < 0.50 mg/L (0.5-3.0) L MDM CC: lower abdominal pain Historian: patient Comorbidities: lupus, kidney transplant, immunosuppression due to tacrolimus and mycophenolate Limitations by social determinants of health: None Differential diagnosis, kidney disease, pyelonephritis, other. Vital signs: Stable remained stable in the ER Clinical exam is unremarkable. Soft nontender nondistended abdomen. She is nontoxic in appearance. Labs ( independently ordered interpreted by me ): CBC is normal. No leukocytosis or shift. ESR is normal. Chemistry panel is unremarkable. Renal function is normal. CRP is normal. Urinalysis is unremarkable. No leuk esterase, no nitrites. CT abdomen and pelvis without contrast (independently interpreted by me ): No major abnormalities. Bowel loops appear unremarkable. No free air. Possibly a seroma in the right ischiorectal fossa. Soft tissue otherwise unremarkable. Atrophic [place] kidneys with the right lower quadrant transplant with no evidence of complication. At this point in time patient was stable vital signs, normal inflammatory markers, normal urinalysis, normal imaging. I do not see any concern for any further workup. We will DC to transfer team follow up. ED Course Orders Procedure Category Date Status Time Cbc With Differential LAB 10/08/24 Complete 08:51 Basic Metabolic Panel LAB 10/08/24 Complete 08:51 Urinalysis Profile LAB 10/08/24 Complete 08:51 Culture Urine GEORGE 10/08/24 In Process 08:51 Erythrocyte LAB 10/08/24 Complete Sedimentation Rate 08:51 Crp Quantitative LAB 10/08/24 Complete 08:51 Ct Abdomen/Pelvis W/O CT 10/08/24 Resulted Contrast 08:51 Vital Signs Date Time Temp Pulse Resp B/P (MAP) Pulse Ox O2 Delivery O2 Flow Rate FiO2 10/08/24 11:01 98.1 80 18 143/91 99 Room Air* 0 21 10/08/24 09:30 97.9 76 18 136/89 98 Room Air* 0 21 10/08/24 08:29 97.5 76 16 121/93 100 Room Air 0 DX & DISP Disposition: Discharge Departure Impression: Primary Impression: Lower abdominal pain Additional Impressions: Immunosuppression, History of kidney transplant Condition: Stable Additional Instructions: There are no dangerous findings on your workup here today. Your blood work (CBC, BMP) is unremarkable. Your inflammatory markers (ESR, CRP) are normal. The urinalysis does not show any signs of infection. As we discussed, this was sent for culture. If there is a positive results from the culture you will get a phone call within [address] scan of the abdomen and pelvis does not show any major abnormalities. The transplant appears stable. There are no signs of other causes of your symptoms. As we discussed, I recommend he follow up with your transport team if you continue with symptoms. Return to the emergency department as needed. Referrals: KJ BANERJEE MD (PCP) ARACELI HALE DO Oct 08, 2024 08:55
[2024-10-08 09:31] LABS: BASOPHILS # (AUTO) 0.01 K/uL (0.00-0.20); BASOPHILS % (AUTO) 0.2 % (0.0-5.0); EOSINOPHILS # (AUTO) 0.06 K/uL (0.00-0.70); HEMATOCRIT 42.7 % (36-48); IMMATURE GRANULOCYTE ABSOLUTE 0.01 K/uL (0-1); LYMPHOCYTES # (AUTO) 1.6 K/uL (1.0-4.8); LYMPHOCYTES % (AUTO) 27.7 % (21.0-51.0); MEAN CORPUSCULAR HEMOGLOBIN 29.3 pg (27.0-33.0); MEAN CORPUSCULAR HGB CONC 34.4 g/dL (32.0-36.0); MEAN CORPUSCULAR VOLUME 85.2 fL (79-99); MONOCYTES # (AUTO) 0.4 K/uL (0.1-1.0); MONOCYTES % (AUTO) 7.1 % (3.0-13.0); NEUTROPHILS # (AUTO) 3.7 K/uL (1.8-7.7); NEUTROPHILS % (AUTO) 63.8 % (40.0-77.0); PLATELET COUNT (AUTO) 224 K/uL (130-400); RED BLOOD CELL COUNT(AUTO) 5.01 MIL/uL (4.00-5.50); RED CELL DISTRIBUTION WIDTH 12.3 % (11.0-15.5); WHITE BLOOD COUNT (AUTO) 5.8 K/uL (4.8-10.8)
[2024-10-08 09:36] LABS: CARBON DIOXIDE 30 mmol/L (21-32); CHLORIDE 100 mmol/L (101-111); CREATININE 0.9 mg/dL (0.5-1.0); GLOMERULAR FILTR. RATE CALC 78 mL/min (>90); GLUCOSE,RANDOM 84 mg/dL (70-105); POTASSIUM 3.8 mmol/L (3.5-5.1); SODIUM SERUM 136 mmol/L (136-145); UREA NITROGEN, BLOOD 10 mg/dL (7-18)
[2024-10-08 09:39] LABS: APPEARANCE,URINE CLEAR (CLEAR); BILIRUBIN,URINE NEGATIVE (NEGATIVE); COLOR,URINE LIGHT-YELLOW (YELLOW); GLUCOSE, URINE (UA) NEGATIVE (NEGATIVE); KETONES,URINE NEGATIVE (NEGATIVE); LEUKOCYTE ESTERASE ,URINE NEGATIVE Leu/uL (NEGATIVE); NITRATE,URINE NEGATIVE (NEGATIVE); OCCULT BLOOD,URINE NEGATIVE (NEGATIVE); PROTEIN,URINE NEGATIVE (NEGATIVE); UROBILINOGEN,URINE 0.2 mg/dL (0.2-1.0)
[2024-10-08 09:41] LABS: ADD UA MICROSCOPIC NO
--- NOTE | 2024-10-08 10:42 | HMCIMG ---
CT ABDOMEN/PELVIS W/O CONTRAST REASON: lower abd pain, hx colitis, R kidney transplant COMPARISON: 04/11/2021 FINDINGS: Lung bases are clear. There are no focal liver lesions. Kidneys are severely atrophic. There is a transplant kidney in the right lower quadrant.. Spleen and pancreas appear unremarkable. There has been a previous cholecystectomy. Bowel loops appear unremarkable. This includes normal appearance of the appendix There is no evidence of free fluid or intraperitoneal air. There are no focal fluid collections. Aorta and retroperitoneum appear normal. There is a well-circumscribed fluid collection in the right ischiorectal fossa. This is unchanged in size and appearance compared to previous exam, this is thin-walled with no adjacent inflammation. An incidental seroma or congenital enteric cyst appear most likely given interval stable appearance. Pelvic soft tissues appear otherwise unremarkable. The anterior abdominal wall is intact. Osseous structures appear unremarkable. IMPRESSION: 1. Atrophic [place] kidneys with the right lower quadrant transplant, no evidence of complication. 2. Otherwise unremarkable exam, no acute finding in the abdomen or pelvis. Absent gallbladder. CT was performed with one or more following dose reduction techniques: automated exposure control, adjustment of the mA and kv according to patient's size, or use of a iterative reconstruction technique.
[2024-10-08 10:43] LABS: ERYTHROCYTE SEDIMENTATION RATE 19 MM/HR (0-30)
[2024-10-08 11:01] VITALS: BP 143/91; PULSE 80; RESP 18; TEMP 98; O2SAT 99
== END 2024-10-08 11:30 | disposition home or self-care (01) ==
LOC: EDH 08:27
DX: R10.31 Right lower quadrant pain (principal); D84.821 Immunodeficiency due to drugs; Z79.52 Long term (current) use of systemic steroids; Z79.899 Other long term (current) drug therapy; Z94.0 Kidney transplant status
CPT/HCPCS: 36415; 74176; 80048; 81003; 85025; 85651; 86140; 87086; 99284